=== PATIENT | male | born 2000 | race American Indian/Alaskan Native ===

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

== ENCOUNTER 2020-04-23 12:56 | Emergency (ER) | payer SELFPAY ==
[2020-04-23 13:03] VITALS: BP 130/73
[2020-04-23] MEDS ORDERED: LIDOCAINE-MPF (1%) 10 MG/1 ML VIAL 5 ML INFILTRATI ONE (14:55)
[2020-04-23] MEDS ORDERED: AZITHROMYCIN 250 MG TAB PO STA (14:55)
--- NOTE | 2020-04-23 15:09 | Emergency Department Report ---
ED Male HPI - General Chief complaint: Urogenital-Male Stated complaint: POSS STD Time Seen by Provider: 04/23/20 13:57 Source: patient Mode of arrival: Ambulatory Limitations: No Limitations - History of Present Illness MD Complaint: penile discharge, dysuria -: Sudden Location: penis Radiation: none Severity: mild Quality: dull Consistency: constant Improves with: none Worsens with: none discharge - Related Data Sexually active: Yes Previous Rx's Medication Instructions Recorded Last Taken Type Ibuprofen [Motrin] 400 mg PO Q8H PRN #30 tablet 11/16/16 Unknown Rx metroNIDAZOLE [Flagyl] 2,000 mg PO ONCE #4 tab 04/23/20 Unknown Rx Allergies Allergy/AdvReac Type Severity Reaction Status Date / Time No Known Allergies Allergy Unverified 11/16/16 17:20 ED Review of Systems ROS: Stated complaint: POSS STD Other details as noted in HPI Comment: All other systems reviewed and negative ED Past Medical Hx - Past Medical History Previous Medical History?: No - Surgical History Past Surgical History?: No - Social History Smoking Status: Current Every Day Smoker Substance Use Type: None - Medications Home Medications: Home Medications Medication Instructions Recorded Confirmed Last Taken Type Ibuprofen [Motrin] 400 mg PO Q8H PRN #30 tablet 11/16/16 Unknown Rx metroNIDAZOLE [Flagyl] 2,000 mg PO ONCE #4 tab 04/23/20 Unknown Rx ED Physical Exam - General Limitations: No Limitations General appearance: alert, in no apparent distress - Head Head exam: Present: atraumatic, normocephalic - Eye Eye exam: Present: normal appearance, PERRL, EOMI - ENT ENT exam: Present: mucous membranes moist - Neck Neck exam: Present: normal inspection - Respiratory Respiratory exam: Present: normal lung sounds bilaterally. Absent: respiratory distress - Cardiovascular Cardiovascular Exam: Present: regular rate, normal rhythm. Absent: systolic murmur, diastolic murmur, rubs, gallop - GI/Abdominal GI/Abdominal exam: Present: soft, normal bowel sounds - Rectal Rectal exam: Present: deferred - exam: Present: normal inspection. Absent: testicular tenderness, urethral discharge, scrotal swelling, vertical testicular lie, circumcision - Extremities Exam Extremities exam: Present: normal inspection - Back Exam Back exam: Present: normal inspection - Neurological Exam Neurological exam: Present: alert, oriented X3 - Psychiatric Psychiatric exam: Present: normal affect, normal mood - Skin Skin exam: Present: warm, dry, intact, normal color. Absent: rash ED Course Vital Signs 04/23/20 13:00 Temperature 97.6 F Pulse Rate 78 Respiratory 18 Rate Blood Pressure 130/73 O2 Sat by Pulse 98 Oximetry Critical care attestation.: If time is entered above; I have spent that time in minutes in the direct care of this critically ill patient, excluding procedure time. ED Disposition Clinical Impression: Dysuria, Exposure to STD Disposition: MED SCREENING EXAM-CONT Is pt being admited?: No Does the pt Need Aspirin: No Condition: Stable Instructions: Sexually Transmitted Diseases (ED), Safe Sex (ED) Additional Instructions: Patient should give further testing at [facility] in the form of syphilis, hepatitis C, HIV Prescriptions: metroNIDAZOLE [Flagyl] 2,000 mg PO ONCE #4 tab Referrals: [facility] [Outside] - 3-5 Days PRIMARY CARE,MD [Primary Care Provider] - 3-5 Days
== END 2020-04-23 16:12 | disposition home or self-care (01) ==
LOC: ED 12:56
DX: R30.0 Dysuria (principal); F17.200 Nicotine dependence, unspecified, uncomplicated; Z20.2 Contact with and (suspected) exposure to infections with a predominantly sexual mode of transmission; Z79.899 Other long term (current) drug therapy; Z53.21 Procedure and treatment not carried out due to patient leaving prior to being seen by health care provider
CPT/HCPCS: J0696

== ENCOUNTER 2020-12-15 12:34 | Emergency (ER) | payer SELFPAY ==
[2020-12-15 14:43] VITALS: BP 116/84
--- NOTE | 2020-12-15 17:30 | Emergency Department Report ---
Chief Complaint: Urogenital-Male Stated Complaint: DISCHARGE Time Seen by Provider: 12/15/20 15:01 - HPI History of Present Illness: This is a 20-year-old healthy looking male presents to ED complaining of penile discharge x2 days. Patient states that his girlfriend called him and told him that she had an STD. Patient denies any pelvic pain, pain with urination, testicular pain or pain. - ROS Review of Systems: As noted in HPI - Exam Vital Signs: Vital Signs 12/15/20 14:42 Pulse Rate 83 Respiratory 16 Rate Blood Pressure 116/84 [Right] O2 Sat by Pulse 98 Oximetry MSE screening note: Focused history and physical exam performed. Due to findings the following was ordered: ED Medical Decision Making - Medical Decision Making 20-year-old female presented for STD testing. Discussed with patient is not a medical emergency and can follow-up with the health department. Also discussed with patient he can follow-up with resources as referred for STD testing and treatment. Patient was in no acute or respiratory distress. ED Disposition for MSE Clinical Impression: Penile discharge Disposition: Z-07 MED SCREENING EXAM-LEFT Is pt being admited?: No Does the pt Need Aspirin: No Condition: Stable Instructions: Safe Sex, Urethritis, Adult Referrals: PRIMARY CARE, [Primary Care Provider] - 3-5 Days
== END 2020-12-15 15:02 | disposition left against medical advice (07) ==
LOC: ED 12:34
DX: R36.9 Urethral discharge, unspecified (principal); Z53.21 Procedure and treatment not carried out due to patient leaving prior to being seen by health care provider